=== PATIENT | male | born 1955 | race Caucasian/White ===

== ENCOUNTER 2022-09-01 12:58 | Emergency (ER) | payer OTHER, MEDICARE ==
[~2022-09-01] VITALS: Ht 188 cm; Wt 106.6 kg
[2022-09-01 13:13] VITALS: BP_SYST 168
[2022-09-01] MEDS ORDERED: TAMSULOSIN HCL 0.4 MG CAP PO ONE (14:15)
[2022-09-01] MEDS ORDERED: KETOROLAC TROMETHAMINE 30 MG VIAL IVP ONE (14:15)
[2022-09-01] MEDS ORDERED: NACL 0.9% 1,000 ML IV ONE (14:15)
[2022-09-01] MEDS ORDERED: KETOROLAC TROMETHAMINE 60 MG/2 ML VIAL IM ONE ×2 (14:23→14:30)
--- NOTE | 2022-09-01 14:33 | NUR ---
pt medicated IM toradol v.o. Dr. Chavez
--- NOTE | 2022-09-01 14:34 | NUR ---
Patient to ER bed h3 to gown for evaluation. Side rails up. Report given to Hilary CENTENO.
[2022-09-01 14:41] LABS: BILIRUBIN,URINE 1+ (NEGATIVE); BLOOD, URINE 3+ (NEGATIVE); CLARITY/URINE TURBID (CLEAR); COLOR,URINE BROWN (YELLOW); GLUCOSE,URINE NEGATIVE (NEGATIVE); KETONES,URINE TRACE (NEGATIVE); LEUKOCYTE ESTERASE ,URINE NEGATIVE (NEGATIVE); NITRITE, URINE POSITIVE (NEGATIVE); PH,URINE 6.5 (5.0-8.0); PROTEIN URINE 3+ (NEGATIVE)
--- NOTE | 2022-09-01 14:43 | NUR ---
# 20 gauge angiocath placed to RAC. Use of asceptic technique. Opsite placed over site. Blood return noted. Blood for lab drawn from site. Flushed with 10 cc of normal saline. No evidence of infiltration noted. Patient tolerated well.
[2022-09-01 14:49] LABS: BASOPHILS % (AUTO) 0.6 % (0.0-2.0); EOSINOPHILS # (AUTO) 0.1 K/uL (0.0-0.4); EOSINOPHILS % (AUTO) 0.9 % (0.0-4.0); HEMATOCRIT 49.1 % (36-54); HEMOGLOBIN 16.6 g/dL (14.0-18.0); LYMPHOCYTES # (AUTO) 1.6 K/uL (1.0-5.5); LYMPHOCYTES % (AUTO) 19.9 % (20.5-51.5); MEAN CORPUSCULAR HEMOGLOBIN 30 pg (27-31); MEAN CORPUSCULAR HGB CONC 34 % (32-36); MEAN CORPUSCULAR VOLUME 89 fL (79.0-98.0); MONOCYTES # (AUTO) 0.8 K/uL (0.0-1.0); MONOCYTES % (AUTO) 10.3 % (1.7-9.3); NEUTROPHILS # (AUTO) 5.4 K/uL (1.8-7.7); NEUTROPHILS % (AUTO) 68.3 % (40.0-70.0); PLATELET COUNT (AUTO) 265 K/uL (130-430); RED BLOOD CELL COUNT(AUTO) 5.52 MIL/uL (4.2-6.2); RED CELL DISTRIBUTION WIDTH 13.3 % (9.0-15.0)
[2022-09-01 14:58] LABS: BACTERIA,URINE MODERATE /HPF (None Seen); RBC,URINE >100 /HPF (0-3)
[2022-09-01 14:59] LABS: YEAST,URINE Moderate /HPF (None Seen)
--- NOTE | 2022-09-01 15:00 | NUR ---
PT COMPLAINS OF FLANK PAIN TO RIGHT SIDE. PT IS 10/10, POSITIONAL COMFORTABILITY. 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 AAOX3 DENIES SOB, DENIES HEADACHE.
[2022-09-01 15:10] LABS: CALCIUM 9.9 mg/dL (8.4-11.0); CREATININE 1.12 mg/dL (0.55-1.30)
[2022-09-01 15:15] LABS: ALBUMIN 4.6 g/dL (3.4-4.8); TOTAL BILIRUBIN 0.6 mg/dL (0.0-1.0)
[2022-09-01] MEDS ORDERED: MORPHINE 4 MG INJ. 4 MG/ML VIAL IVP ONE (15:15)
[2022-09-01] MEDS ORDERED: ONDANSETRON HCL 4 MG/2 ML VIAL ONE (15:22)
[2022-09-01] MEDS ORDERED: IBUP-1971 PO (15:28)
[2022-09-01] MEDS ORDERED: NITR-85 PO (15:28)
[2022-09-01] MEDS ORDERED: HYDR-3917 PO (15:28)
[2022-09-01] MEDS ORDERED: cefTRIAXone 1 GM in D5W 50 ML IV ONE (15:30)
[2022-09-01] MEDS ORDERED: TAMS-11 PO (15:33)
[2022-09-01] MEDS ORDERED: cefTRIAXone 1 GM VIAL ONE (15:51)
--- NOTE | 2022-09-01 16:06 | NUR ---
Patient given written and verbal discharge instructions and verbalizes understanding. ER MD discussed with patient the results and treatment provided. Patient in stable condition. ID arm band removed.Patient educated on pain management and to follow up with PMD. Opportunity for questions provided and answered. Medication side effect fact sheet provided.
[2022-09-01 16:10] VITALS: BP_SYST 148
== END 2022-09-01 16:10 | disposition home or self-care (01) ==
LOC: SED 12:58
DX: N20.0 Calculus of kidney (principal); R11.0 Nausea; Z88.1 Allergy status to other antibiotic agents; Z88.2 Allergy status to sulfonamides; Z79.899 Other long term (current) drug therapy
CPT/HCPCS: 99284; 74176; 96374; 96375; 96361; 80053; 81000; 83690; 85025; 87086; 36415; 76376; J0696; J1885 ×2; J2405; J2270; J7060; J7030